=== PATIENT | female | born 1955 | race Hispanic/Latino ===

== ENCOUNTER → 2024-09-09 | Outpatient (CLI) | payer OTHER ==
--- NOTE | 2024-09-10 08:10 | HMCIMG ---
EXAMINATION: ULTRASOUND OF THE ABDOMEN WITH COLOR DOPPLER. CLINICAL HISTORY: Abnormal LFT. COMPARISON: None. TECHNIQUE: Real-time grayscale ultrasound images of the abdomen. In addition, color Doppler is medically necessary to perform in order to evaluate vascularity and blood flow. FINDINGS: Liver: Normal in caliber, the right hepatic lobe measures 13.1 cm in the craniocaudal dimension. There is increased echogenicity of the hepatic parenchyma. There is no focal hepatic abnormality or intrahepatic biliary ductal dilatation. There is normal spectral Doppler of the main portal vein. Gallbladder: Within normal limits with normal wall thickness (0.18 cm). No hyperemia or pericholecystic free fluid. There is no cholelithiasis. Common bile duct is normal in caliber, measuring 0.51 cm. Spleen is normal in caliber and measures 9.5 x 2.7 x 2.9 cm in craniocaudal, AP and transverse dimensions respectively. No focal lesions. Pancreas: Normal in caliber and echotexture. No calcification or dilated pancreatic duct. The kidneys are normal in caliber, the right kidney measures 12.8 x 5.1 x 4.7 cm and the left kidney measures 11.9 x 5.0 x 4.1 cm in craniocaudal, AP, and transverse dimensions respectively. There is normal renal cortical thickness, and cortical echogenicity. There is no renal calculus or hydronephrosis. There is a simple cortical cyst that measures 4.5 x 5.6 x 6.4 cm in the right renal mid pole. Visualized aspects of the aorta and inferior vena cava are unremarkable. IMPRESSION: Hepatic steatosis. Right renal simple cortical cyst. /[place]
== END | disposition home or self-care (01) ==
LOC: RAH 09:05
PROVIDERS: ATTEND Internal Medicine
DX: K76.0 Fatty (change of) liver, not elsewhere classified (principal); R74.8 Abnormal levels of other serum enzymes; R14.0 Abdominal distension (gaseous); N28.1 Cyst of kidney, acquired
CPT/HCPCS: 76700

== ENCOUNTER → 2024-09-17 | Outpatient (CLI) | payer OTHER ==
--- NOTE | 2024-09-17 18:24 | HMCIMG ---
Exam: Bone mineral densitometry History: Osteoporosis screening. 69-year-old female Comparison: No prior studies are available for comparison. Technique: BMD evaluation at the hip and femur were performed. The following BMD values were obtained: Femoral neck: 0.590 g/cm??? corresponding to a T score of -2.4 and a Z score of -0.6. Total hip: 0.815 g/cm??? corresponding to a T score of -1.1 and a Z score of 0.4. Total spine : 0.798 g/cm??? corresponding to a T score of -2.3 and a Z score of -0.1. 10-year major osteoporotic fracture risk 7.5%/hip fracture 1.7% Conclusion 1. The examination above is compatible with osteopenia based upon the WHO classification system. 2. There are no prior studies for comparison.. 3. The patient is at increased fracture risk based upon this examination. Please note the following: * The World Health Organization, WHO classification is assigned to the lowest resultant T score obtained above. * WHO classifications do not apply to premenopausal women, men younger than 50 and children. For these individuals, Z scores above -2.0 are considered normal for age. For these individuals, Z scores less than -2.0 are considered to have low bone density for age. T-scores should not be utilized for these patients. Please correlate clinically as the patient's age and sex may not be available at the time of interpretation. WHO classification for T-scores: (Used for postmenopausal women and men older than 50 years of age). Normal: -1.0 or greater Osteopenia: Between -1.0 and -2.5 Osteoporosis: Less than -2.5 /[place]
== END | disposition home or self-care (01) ==
LOC: RAH 08:50 → EDUNIT# 09:00
PROVIDERS: ATTEND Internal Medicine
DX: Z13.820 Encounter for screening for osteoporosis (principal); Z78.0 Asymptomatic menopausal state
CPT/HCPCS: 77080